=== PATIENT | female | born 1950 | race Caucasian/White ===

== ENCOUNTER 2017-03-11 09:14 | Outpatient (CLI) | payer OTHER ==
--- NOTE | 2017-03-11 10:19 | DIAGNOSTIC IMAGING REPORT ---
PROCEDURE: DEXA BONE DENSITY STUDY CLINICAL INDICATION: SCREENING COMPARISON: 07/04/05 DEXA FINDINGS: LUMBAR SPINE: Bone mineral density 0.812 g/cm2, T score -2.1 osteopenia which represents a 21.7% decrease since the previous study LEFT HIP: Bone mineral density 0.703 g/cm2, T score -2.0 osteopenia which represents a 25.4% decrease from the previous study LEFT FEMORAL NECK: Bone mineral density 0.552 g/cm2, T score -2.7 osteoporosis which represents a 32.4% decrease from the previous study FRACTURE RISK CALCULATION ( when applicable): 10-year fracture risk of a major osteoporotic fracture and of a hip fracture not reported because some T-score at or below -2.5 (T score greater or equal to -1.0 to: NORMAL) (T score from -1.1 to -2.4: OSTEOPENIA) (T score ess than or equal to -2.5: OSTEOPOROSIS) IMPRESSION: 1. Osteopenia lumbar spine and hip, osteoporosis femoral neck with decreases in bone mineral density of 21.7%, 25.4% and 32.4% respectively
--- NOTE | 2017-03-11 11:05 | DIAGNOSTIC IMAGING REPORT ---
PROCEDURE: MG BILATERAL SCREENING W/CAD INDICATION: Screening. Family history breast carcinoma (aunt, cousin). TECHNIQUE: Bilateral CC and MLO digital views. COMPARISON: Compared to 08/07/2015, 07/20/2014, and 09/02/2012. FINDINGS: Computer-aided detection applied. Mildly dense. No change. IMPRESSION: 1. Negative mammogram. RESULT CODE: 1- Negative. A. A negative report should not delay biopsy if a dominant or clinically suspicious mass is present. 10-15% of cancers are not identified by x-ray. B. A negative report may reinforce clinical impression. C. Adenosis and dense breasts may obscure an underlying neoplasm. D. False positive reports average 6-10%. E.. A yearly screening mammogram is recommended. A reminder letter will be scheduled.
== END 2017-03-11 23:00 ==
LOC: MAM SRH 09:14
DX: M85.89 Other specified disorders of bone density and structure, multiple sites (principal); Z12.31 Encounter for screening mammogram for malignant neoplasm of breast; Z80.3 Family history of malignant neoplasm of breast

== ENCOUNTER 2017-03-25 11:32 | Outpatient (CLI) | payer OTHER ==
--- NOTE | 2017-03-25 12:44 | DIAGNOSTIC IMAGING REPORT ---
PROCEDURE: US VENOUS - LEFT EXT INDICATION: LEFT LEG PAIN;EDEMA TECHNIQUE: Duplex sonography of the deep venous system in the left lower extremity was performed. Compression and augmentation techniques were used. COMPARISON: None. FINDINGS: Each interrogated segment of deep vein from the common femoral vein into the calf veins demonstrates normal compressibility, augmentation and/or color Doppler flow without filling defect. No evidence of significant soft-tissue edema, soft-tissue mass or cyst. IMPRESSION: 1. No deep venous thrombosis in the left lower extremity.
--- NOTE | 2017-03-25 12:50 | DIAGNOSTIC IMAGING REPORT ---
PROCEDURE: XR TIBIA AND FIBULA - LEFT INDICATION: LEG PAIN *2VIEW* TECHNIQUE: AP and lateral views. COMPARISON: None. FINDINGS: Osseous structures are normal. IMPRESSION: 1. Normal left tibia and fibula.
== END 2017-03-25 23:00 ==
LOC: US SRH 11:32
DX: M79.605 Pain in left leg (principal)